=== PATIENT | female | born 1955 | race Asian ===

== ENCOUNTER 2017-09-16 19:16 | Inpatient (IN) | payer OTHER ==
[~2017-09-16] VITALS: Ht 160 cm; Wt 58.6 kg
[2017-09-16 19:52] VITALS: Ht 160 cm; Wt 58.6 kg
[2017-09-16 21:57] LABS: BASOPHIL % 0.6 % (0-2); PLATELET COUNT 321 x10^3mcL (130-400); RED CELL DISTRIBUTION WIDTH 13.1 % (11.5-14.5)
[2017-09-16 22:05] LABS: CALCIUM 8.7 mg/dL (8.5-10.1); CARBON DIOXIDE 27.2 mmol/L (21-32); CHLORIDE SERUM 103 mmol/L (98-107); CREATININE SERUM 0.6 mg/dL (0.6-1.0); GFR1 > 60 mL/min; GLUCOSE SERUM 85 mg/dL (74-106); POTASSIUM SERUM 3.2 mmol/L (3.5-5.1); SODIUM SERUM 137 mmol/L (136-145)
[2017-09-16 22:14] LABS: ALKALINE PHOSPHATASE 74 U/L (46-116); ALT/SGPT 47 U/L (14-59); AST/SGOT 57 U/L (15-37); BILIRUBIN TOTAL 0.89 mg/dL (0.20-1.00); TOTAL PROTEIN, SERUM 7.7 g/dL (6.4-8.2)
[2017-09-16 22:22] LABS: UA SPECIFIC GRAVITY <=1.005 (1.005-1.035); microscopic required? YES; urine erythrocyte NEGATIVE (NEGATIVE)
[2017-09-16] MEDS ORDERED: VENTOLIN H0.09 MG/A1 INH (23:03)
[2017-09-16] MEDS ORDERED: LEVOFLOXACIN500 M1 PO (23:03)
[2017-09-16] MEDS ORDERED: PROMETHAZINE V118 M1 PO (23:04)
[2017-09-16] MEDS ORDERED: AMBIEN5 MG PO (23:04)
[2017-09-16] MEDS ORDERED: LEVOTHYROXINE0.05 M2 PO (23:04)
[2017-09-17 00:19] VITALS: BP 161/93
[2017-09-17 05:53] VITALS: BP 131/70
[2017-09-17 06:16] LABS: BASOPHIL % 0.5 % (0-2); PLATELET COUNT 295 x10^3mcL (130-400); RED CELL DISTRIBUTION WIDTH 12.8 % (11.5-14.5)
[2017-09-17 06:44] LABS: ALKALINE PHOSPHATASE 62 U/L (46-116); ALT/SGPT 37 U/L (14-59); AST/SGOT 44 U/L (15-37); BILIRUBIN TOTAL 0.69 mg/dL (0.20-1.00); CARBON DIOXIDE 23.4 mmol/L (21-32); CHLORIDE SERUM 108 mmol/L (98-107); CREATININE SERUM 0.6 mg/dL (0.6-1.0); GFR1 > 60 mL/min; GLUCOSE SERUM 96 mg/dL (74-106); MAGNESIUM 1.7 mg/dL (1.8-2.4); POTASSIUM SERUM 3.7 mmol/L (3.5-5.1); SODIUM SERUM 141 mmol/L (136-145); TOTAL PROTEIN, SERUM 6.5 g/dL (6.4-8.2)
[2017-09-17 07:33] LABS: ALBUMIN 2.5 g/dL (3.4-5.0)
[2017-09-17 09:28] VITALS: BP 164/86
[2017-09-17 17:18] VITALS: BP 149/76
[2017-09-17 19:24] VITALS: BP 149/76
== END 2017-09-17 19:52 | disposition home or self-care (01) | DRG 144 ==
LOC: ED 19:16 → DU 23:37 → MU 23:37 → DU 09-17 00:04 → MU 09-17 00:29
PROVIDERS: Emergency Medicine; Internal Medicine Pulmonary Disease
DX: J20.9 Acute bronchitis, unspecified (principal); R31.9 Hematuria, unspecified; B34.9 Viral infection, unspecified
CPT/HCPCS: 83880; J0456; J0696; J1885; J1956; J3535; J7030; J7613; J7644; Q0092